=== PATIENT | female | born 1965 | race Two or more races ===

== ENCOUNTER → 2023-10-29 13:36 | Outpatient (REF) | payer OTHER, SELFPAY | LOC: WDC 13:36 | PROVIDERS: ATTENDING PHYSICIAN Internal Medicine | DX: R92.2 Inconclusive mammogram (principal) | CPT/HCPCS: 76641 ==

== ENCOUNTER 2023-12-21 16:45 | Emergency (ER) | payer OTHER, SELFPAY ==
[2023-12-21 17:00] VITALS: BP 127/98
[2023-12-21 17:20] LABS: % Basophils 0.4 % (0-2); % Eosinophils 1.2 % (0-6); % Immature Granulocytes 0.5 % (0-0.5); % Lymphocytes 20.3 % (20.5-51.1); % Monocytes 7.4 % (1.7-9.3); % Neutrophils 70.2 % (42.2-75.2); Absolute Basophils 0.1 10^3/uL (0-0.2); Absolute Eosinophils 0.1 10^3/uL (0-0.7); Absolute Immature Granulocytes 0.1 10^3/uL (0-0.05); Absolute Lymphocytes 2.4 10^3/uL (1.2-3.4); Absolute Monocytes 0.9 10^3/uL (0.1-0.6); Absolute Neutrophils 8.2 10^3/uL (1.4-6.5); Hematocrit 43.4 % (37.0-47.0); Hemoglobin 15.3 g/dL (12.0-16.0); Mean Corp Hgb Conc. 35.3 g/dL (33.0-37.0); Mean Corpuscular Hgb 30.9 pg (27.0-31.0); Mean Corpuscular Volume 87.7 fL (81.0-99.0); Mean Platelet Volume 10.1 fL (7.4-10.4); Nucleated Red Blood Cells % 0 %; Platelet Count 251 10^3/uL (130-400); Red Blood Cell Count 4.95 10^6/uL (4.20-5.40); Red Cell Dist. Width 13.2 % (11.5-14.5); White Blood Cell Count 11.7 10^3/uL (4.8-10.8)
[2023-12-21 17:34] LABS: ALT (SGPT) 24 U/L (0-35); AST (SGOT) 26 U/L (14-36); Albumin 4.6 g/dl (3.5-5.0); Alkaline Phosphatase 91 U/L (38-126); Blood Urea Nitrogen 21 mg/dl (7-17); Calcium 9.6 mg/dl (8.4-10.2); Carbon Dioxide 23 mmol/L (22-30); Chloride 104 mmol/L (98-107); Glucose 99 mg/dl (70-99); Lipase 118 U/L (23-300); Potassium 4.2 mmol/L (3.5-5.1); Sodium 136 mmol/L (135-145); Total Bilirubin 0.8 mg/dl (0.2-1.3); Total Protein 6.6 g/dl (6.3-8.2); eGFR 58.24
[2023-12-21 18:52] VITALS: BMI 27.2
[2023-12-21 19:00] VITALS: BP 111/93
--- NOTE | 2023-12-21 19:37 | ED.GENMED ---
History of Present Illness
General
Chief Complaint: Abdominal Pain
Time Seen by Provider: 12/21/23 19:19
History of Present Illness
History of Present Illness:
HPI: Patient presents with diffuse abdominal pain. She was 'vomiting all night'. She has had poor p.o. intake today but currently states that she is now hungry. She has has had several surgeries related to endometriosis. She has history of IBS.
She called PMD who referred her here for further evaluation. She has not had any diarrhea.
EXAM:
GENERAL: Well appearing in mild distress
HEENT: Moist oral mucosa
CARDIOVASCULAR: No murmurs, normal heart rate, regular rhythm, No chest wall tenderness
PULMONARY: No respiratory distress, breath sounds are clear and equal
ABDOMEN: Soft with no peritoneal signs, mild diffuse abdominal tenderness
NEUROLOGIC: Excellent strength all extremities, no coordination deficits, chronic speech disturbance noted
PSYCHIATRIC: Appropriate mental status, normal insight and judgement
EXTREMITIES: Nontender, no edema, moves all extremities equally
SKIN: No rash, no lesions
TIME OF INITIAL ENCOUNTER: 7:30 PM
NUMBER AND COMPLEXITY OF PROBLEMS ADDRESSED AT THE ENCOUNTER
� Chronic conditions affecting care: Interstitial cystitis, IBS
� Acute Exacerbation and/or Progression of Chronic Illness: This is an acute problem
� Differential Diagnosis includes: Exacerbation of interstitial cystitis, exacerbation of IBS, colitis, enteritis, diverticulitis
AMOUNT AND/OR COMPLEXITY OF DATA TO BE REVIEWED AND ANALYZED
� I performed an independent evaluation of and my interpretation is:
EKG:
CT: CT imaging suggest enteritis in the left lower quadrant
X-rays:
Laboratory Studies: White count slightly elevated 11.7, creatinine 1.1 with GFR 58, lipase and LFTs normal
Other:
� Review of other/old records: I reviewed records, the patient has had speech disturbances in the past as documented in 2021
� Clinical information was obtained by an independent historian: I spoke to cousin at bedside
� Prescriptions/Medications Considered but not given:
� Further testing considered but not performed:
RISK OF COMPLICATIONS AND/OR MORBIDITY OR MORTALITY OF PATIENT MANAGEMENT
� Social determinants of health affecting care: Lives at home
� Discussion with other providers:
� Escalation of care including admission/observation vs risk of discharge considered: Given patient's diffuse abdominal tenderness will obtain CT imaging. Although CT imaging showed enteritis in the left lower quadrant, the
patient's symptoms are diffuse. She was given Zofran, Pepcid, and IV saline. On reassessment at 10:10 PM, she appears fairly comfortable. Will add a prescription for Zofran at home.
Past History
Past History
ED Past Medical History: GERD, Hypercholesterolemia and Other (IBS, Interstitial Cystitis)
ED Past Surgical History: Gynecological (Hysterectomy Complete)
Social History
Tobacco: Smoker
Alcohol: Occasional
Personal:
Living: alone
Phy Exam
Physical Exam
Physical Exam:
See HPI
Course
Orders/Labs/Results
Orders:
Orders
12/21/23 17:11
Complete Blood Count/With Diff Urgent
Comprehensive Metabolic Panel Urgent
Lipase Urgent
12/21/23 19:37
CT Abd/pelvis W Iv Cont Urgent
Comment:
Reason For Exam: diffuse abd pain
0.9% Sodium Chloride 1000 ml [Nss] 1,000 ml IV BOLUS
Ondansetron Injectable [Zofran] 4 mg IV NOW STA
12/21/23 19:45
Famotidine [Pepcid] 20 mg IV NOW STA
12/21/23 22:00
Famotidine [Pepcid] 20 mg IV HS
Abnormal Lab Results
12/21/23
17:11
WBC 11.7 H 10^3/uL
(4.8-10.8)
Abs Immat Gran (auto) 0.1 H 10^3/uL
(0-0.05)
Absolute Neuts (auto) 8.2 H 10^3/uL
(1.4-6.5)
Absolute Monos (auto) 0.9 H 10^3/uL
(0.1-0.6)
Lymphocytes % 20.3 L %
(20.5-51.1)
BUN 21 H mg/dl
(7-17)
Creatinine 1.1 H mg/dL
(0.6-1.0)
12/21/23 17:11
12/21/23 17:11
Vital Signs
Initial and Last Documented VS:
Initial Vital Signs
Temp Pulse Resp BP Pulse Ox
98.1 F 105 20 127/98 98
12/21/23 17:00 12/21/23 17:00 12/21/23 17:00 12/21/23 17:00 12/21/23 17:00
Last Documented Vital Signs
Temp Pulse Resp BP Pulse Ox
98.1 F 92 18 111/93 97
12/21/23 17:00 12/21/23 19:15 12/21/23 19:15 12/21/23 19:00 12/21/23 19:15
*Critical Care Note
Total Time (30-74mins, 75-104mins- exclusive of procedures): Not Applicable
ED Attending Note
-
Portions of this chart may have been created with voice recognition software.� Occasional wrong word or��sound alike� substitutions may have occurred due to the inherent limitations of voice recognition software.
Discharge Plan
Departure
Patient Disposition: Home (Routine Discharge)
Date of Disposition: 12/21/23
Time of Disposition: 22:11
Patient with high blood pressure during this ER visit?: Yes
Discharge Problem:
Enteritis
Instructions: Abdominal Pain
Prescriptions:
New
ondansetron HCl 4 mg tablet
4 mg PO Q8H PRN (Reason: nausea) Qty: 12 0RF
Referrals:
Alirio Porras MD [Family Provider] -
Radha Jasmine MD [Active] - Follow up in 1 week
Activity Restrictions/Additional Instructions:
I recommend that you follow-up with your primary care doctor. I have also given the contact information for a local GI doctor.
Interventions
Interventions:
*Risk Screen - Suicide Last Done: 12/21/23 17:00
*General Assessment Last Done: 12/21/23 17:00
*Neglect/Abuse Screening Last Done: 12/21/23 17:00
*ED COVID-19 Vaccine History Last Done: 12/21/23 18:54
SI-Avonhl-Ivprferylu Assessment Last Done: 12/21/23 19:18
Discharge Date and Time
Print Language: NEPALESE
[2023-12-21] MEDS: NSS 1000 IV (19:49)
[2023-12-21] MEDS: PEPCID 20 MG IV (19:54)
[2023-12-21] MEDS: ZOFRAN 4 MG IV (19:54)
[2023-12-21 20:00] VITALS: BP 119/70
[2023-12-21 21:24] VITALS: BP 111/90
[2023-12-21 22:00] VITALS: BP 113/81
== END 2023-12-21 22:47 | disposition home or self-care (01) ==
LOC: EMR 16:45
PROVIDERS: Emergency Medicine; EMERGENCY PHYSICIAN Emergency Medicine; FAMILY PHYSICIAN Internal Medicine
DX: K52.9 Noninfective gastroenteritis and colitis, unspecified (principal); K21.9 Gastro-esophageal reflux disease without esophagitis; E78.00 Pure hypercholesterolemia, unspecified; F17.200 Nicotine dependence, unspecified, uncomplicated; Z90.710 Acquired absence of both cervix and uterus
CPT/HCPCS: 99284; 96374; 96375; 96361; 74177; 80053; 83690; 85025; Q9967

== ENCOUNTER → 2024-04-15 11:27 | Outpatient (REF) | payer OTHER, SELFPAY | LOC: WDC 11:27 | PROVIDERS: ATTENDING PHYSICIAN Nurse Practitioner Family; FAMILY PHYSICIAN Internal Medicine | DX: Z12.31 Encounter for screening mammogram for malignant neoplasm of breast (principal); K52.9 Noninfective gastroenteritis and colitis, unspecified; K58.1 Irritable bowel syndrome with constipation; M47.816 Spondylosis without myelopathy or radiculopathy, lumbar region; M54.50 Low back pain, unspecified; G89.29 Other chronic pain | CPT/HCPCS: 72110; 74019; 77063; 77067 ==

== ENCOUNTER → 2024-05-05 09:10 | Outpatient (REF) | payer OTHER, SELFPAY | LOC: RAD 09:10 | PROVIDERS: ATTENDING PHYSICIAN Nurse Practitioner Family; FAMILY PHYSICIAN Internal Medicine | DX: K52.9 Noninfective gastroenteritis and colitis, unspecified (principal) | CPT/HCPCS: 74246; 74248 ==

== ENCOUNTER → 2024-06-30 09:57 | Outpatient (REF) | payer OTHER, SELFPAY | LOC: RAD 09:57 | PROVIDERS: ATTENDING PHYSICIAN Internal Medicine; FAMILY PHYSICIAN Internal Medicine | DX: R14.0 Abdominal distension (gaseous) (principal); R11.2 Nausea with vomiting, unspecified | CPT/HCPCS: 78264; A9541 ==

== ENCOUNTER 2024-07-08 06:26 | Day surgery (SDC) | payer OTHER, SELFPAY | END 2024-07-08 13:46 | disposition home or self-care (01) | LOC: GI 06:26 | PROVIDERS: ATTENDING PHYSICIAN Internal Medicine | DX: R13.14 Dysphagia, pharyngoesophageal phase (principal); R14.0 Abdominal distension (gaseous); R68.81 Early satiety; K44.9 Diaphragmatic hernia without obstruction or gangrene; K31.89 Other diseases of stomach and duodenum; R93.3 Abnormal findings on diagnostic imaging of other parts of digestive tract | CPT/HCPCS: 43239; 88305; 88342 ==

== ENCOUNTER → 2024-08-18 13:51 | Outpatient (REF) | payer OTHER, SELFPAY | LOC: RAD 13:51 | PROVIDERS: ATTENDING PHYSICIAN Internal Medicine; FAMILY PHYSICIAN Internal Medicine | DX: K58.1 Irritable bowel syndrome with constipation (principal); R10.30 Lower abdominal pain, unspecified; R14.0 Abdominal distension (gaseous) | CPT/HCPCS: 74019 ==

== ENCOUNTER → 2024-09-18 08:13 | Outpatient (REF) | payer OTHER, SELFPAY | LOC: RAD 08:13 | PROVIDERS: ATTENDING PHYSICIAN Internal Medicine; FAMILY PHYSICIAN Internal Medicine | DX: M62.89 Other specified disorders of muscle (principal) | CPT/HCPCS: 74270 ==

== ENCOUNTER 2024-10-14 06:20 | Outpatient (RCR) | payer OTHER, SELFPAY | END 2024-10-14 23:59 | disposition home or self-care (01) | LOC: RPT 06:20 | PROVIDERS: ATTENDING PHYSICIAN Internal Medicine | DX: M25.552 Pain in left hip (principal); M25.551 Pain in right hip; M47.816 Spondylosis without myelopathy or radiculopathy, lumbar region; G89.4 Chronic pain syndrome; N30.10 Interstitial cystitis (chronic) without hematuria; Z73.6 Limitation of activities due to disability; R26.2 Difficulty in walking, not elsewhere classified; M62.81 Muscle weakness (generalized); R26.89 Other abnormalities of gait and mobility; Z91.81 History of falling | CPT/HCPCS: 97163 ==

== ENCOUNTER 2024-11-11 15:54 | Outpatient (RCR) | payer OTHER, SELFPAY | END 2024-11-11 23:59 | disposition home or self-care (01) | LOC: RPT 15:54 | PROVIDERS: ATTENDING PHYSICIAN Internal Medicine | DX: M25.552 Pain in left hip (principal); M25.551 Pain in right hip; M47.816 Spondylosis without myelopathy or radiculopathy, lumbar region; G89.4 Chronic pain syndrome; N30.10 Interstitial cystitis (chronic) without hematuria; Z73.6 Limitation of activities due to disability; R26.2 Difficulty in walking, not elsewhere classified; M62.81 Muscle weakness (generalized); R26.89 Other abnormalities of gait and mobility; Z91.81 History of falling | CPT/HCPCS: 97010; 97110; 97112 ==

== ENCOUNTER 2024-11-27 12:58 | Outpatient (RCR) | payer OTHER, SELFPAY | END 2024-11-27 23:59 | disposition home or self-care (01) | LOC: RPT 12:58 | PROVIDERS: ATTENDING PHYSICIAN Internal Medicine | DX: M25.552 Pain in left hip (principal); M25.551 Pain in right hip; M47.816 Spondylosis without myelopathy or radiculopathy, lumbar region; G89.4 Chronic pain syndrome; N30.10 Interstitial cystitis (chronic) without hematuria; Z73.6 Limitation of activities due to disability; R26.2 Difficulty in walking, not elsewhere classified; M62.81 Muscle weakness (generalized); R26.89 Other abnormalities of gait and mobility; Z91.81 History of falling | CPT/HCPCS: 97110; 97112 ==

== ENCOUNTER 2024-12-25 10:20 | Outpatient (RCR) | payer OTHER, SELFPAY | END 2024-12-25 23:59 | disposition home or self-care (01) | LOC: RPT 10:20 | PROVIDERS: ATTENDING PHYSICIAN Internal Medicine | DX: N30.10 Interstitial cystitis (chronic) without hematuria (principal); Z73.6 Limitation of activities due to disability; R10.2 Pelvic and perineal pain; R26.89 Other abnormalities of gait and mobility; G89.4 Chronic pain syndrome | CPT/HCPCS: 97161; 97530 ==

== ENCOUNTER 2025-02-10 12:46 | Outpatient (RCR) | payer OTHER, SELFPAY | END 2025-02-10 23:59 | disposition home or self-care (01) | LOC: RPT 12:46 | PROVIDERS: ATTENDING PHYSICIAN Internal Medicine | DX: N30.10 Interstitial cystitis (chronic) without hematuria (principal); Z73.6 Limitation of activities due to disability; R10.2 Pelvic and perineal pain; R26.89 Other abnormalities of gait and mobility; G89.4 Chronic pain syndrome | CPT/HCPCS: 97530 ==

== ENCOUNTER 2025-03-11 14:20 | Outpatient (RCR) | payer MEDICARE, OTHER, SELFPAY | END 2025-03-11 23:59 | disposition home or self-care (01) | LOC: RPT 14:20 | PROVIDERS: ATTENDING PHYSICIAN Internal Medicine | DX: N30.10 Interstitial cystitis (chronic) without hematuria (principal); Z73.6 Limitation of activities due to disability; R10.2 Pelvic and perineal pain; R26.89 Other abnormalities of gait and mobility; G89.4 Chronic pain syndrome | CPT/HCPCS: 97110; 97140; 97164; 97530 ==

== ENCOUNTER 2025-03-19 14:21 | Outpatient (RCR) | payer MEDICARE, OTHER, SELFPAY | END 2025-03-19 23:59 | disposition home or self-care (01) | LOC: RPT 14:21 | PROVIDERS: ATTENDING PHYSICIAN Internal Medicine | DX: N30.10 Interstitial cystitis (chronic) without hematuria (principal); Z73.6 Limitation of activities due to disability; R10.2 Pelvic and perineal pain; R26.89 Other abnormalities of gait and mobility; G89.4 Chronic pain syndrome; R10.20 Pelvic and perineal pain unspecified side | CPT/HCPCS: 97110; 97140 ==

== ENCOUNTER → 2025-04-16 14:03 | Outpatient (REF) | payer MEDICARE, OTHER, SELFPAY | LOC: WDC 14:03 | PROVIDERS: ATTENDING PHYSICIAN Internal Medicine | DX: Z12.31 Encounter for screening mammogram for malignant neoplasm of breast (principal) | CPT/HCPCS: 77063; 77067 ==

== ENCOUNTER 2025-05-04 12:04 | Outpatient (RCR) | payer OTHER, SELFPAY | END 2025-05-04 23:59 | disposition home or self-care (01) | LOC: RPT 12:04 | PROVIDERS: ATTENDING PHYSICIAN Internal Medicine | DX: N30.10 Interstitial cystitis (chronic) without hematuria (principal); Z73.6 Limitation of activities due to disability; R10.2 Pelvic and perineal pain; R26.89 Other abnormalities of gait and mobility; G89.4 Chronic pain syndrome; M51.16 Intervertebral disc disorders with radiculopathy, lumbar region; M48.061 Spinal stenosis, lumbar region without neurogenic claudication; M47.816 Spondylosis without myelopathy or radiculopathy, lumbar region | CPT/HCPCS: 97110; 97140; 97530 ==

== ENCOUNTER 2025-06-02 09:18 | Outpatient (RCR) | payer OTHER, SELFPAY | END 2025-06-02 23:59 | disposition home or self-care (01) | LOC: RPT 09:18 | PROVIDERS: ATTENDING PHYSICIAN Internal Medicine | DX: N30.10 Interstitial cystitis (chronic) without hematuria (principal); Z73.6 Limitation of activities due to disability; R26.89 Other abnormalities of gait and mobility; G89.4 Chronic pain syndrome; M51.16 Intervertebral disc disorders with radiculopathy, lumbar region; M48.061 Spinal stenosis, lumbar region without neurogenic claudication; M47.816 Spondylosis without myelopathy or radiculopathy, lumbar region; R10.20 Pelvic and perineal pain unspecified side; R10.2 Pelvic and perineal pain | CPT/HCPCS: 97110; 97140 ==